=== PATIENT | male | born 1945 | race Two or more races ===

== ENCOUNTER 2023-03-29 12:03 | Emergency (ER) | payer OTHER ==
[~2023-03-29] VITALS: Ht 170.2 cm; Wt 72.6 kg
[2023-03-29] MEDS ORDERED: CARDURA1 MG PO (12:43)
[2023-03-29] MEDS ORDERED: DOXAZOSIN MESYLA2 MG PO (12:44)
[2023-03-29] MEDS ORDERED: [UNRECOGNIZED DRUG - OTHER] PO (12:44)
[2023-03-29] MEDS ORDERED: MICARDIS80 MG PO (12:44)
[2023-03-29] MEDS ORDERED: LASIX20 MG (12:45)
[2023-03-29] MEDS ORDERED: NIFEDIPINE20 MG (12:45)
[2023-03-29] MEDS ORDERED: FLUDROCORTISON0.1 MG PO (12:45)
[2023-03-29] MEDS ORDERED: ECOTRIN81 MG (12:46)
== END 2023-03-29 18:16 | disposition home or self-care (01) ==
LOC: ER 12:03
DX: S00.93XA Contusion of unspecified part of head, initial encounter (principal); W18.30XA Fall on same level, unspecified, initial encounter; Y93.89 Activity, other specified; Y92.018 Other place in single-family (private) house as the place of occurrence of the external cause; Y99.9 Unspecified external cause status; I10 Essential (primary) hypertension; K57.92 Diverticulitis of intestine, part unspecified, without perforation or abscess without bleeding